=== PATIENT | male | born 1975 | race African-American/Black ===

== ENCOUNTER 2016-07-08 13:35 | Inpatient (IN) | payer BC ==
[~2016-07-08] VITALS: Ht 180.3 cm; Wt 98.9 kg
--- NOTE | ~2016-07-08 | EKG ---
[place] [address] [facility] [place] [address] ELECTROCARDIOGRAM REPORT Name: ANGELICA RAJAN Room #: 203-P ADM IN M.R.#: [id number] Admission: 07/08/16 Attend Phys: Kalen Calloway MD Discharge: Date of : 71 Report #: [id number] THIS REPORT FOR: //name// [facility] ED Test Date: 2016-07-08 Test Time: 13:44:54 Pat Name: ANGELICA RAJAN Department: Room: 203 Gender: M Bundle Person: adi : 1975 Requested By: Suze Mi Order Number: [id number] MD: Matty Pacheco Measurements Intervals [place] Rate: 68 P: 18 W[place]: 166 QRS: -1 QRSD: 103 T: 21 QT: 380 QTc: 405 Interpretive Statements Sinus rhythm RSR' in V1 or V2, probably normal variant ST elev, probable normal early repol pattern No previous ECG available for comparison Electronically Signed On 07-09-2016 12:50:38 CDT by Matty Pacheco [email or web address] <ELECTRONICALLY SIGNED> By: Matty Pacheco MD, [facility] 07/09/16 1250 1344 134 Matty Pacheco MD, [facility] /EPI
--- NOTE | ~2016-07-08 | EKG ---
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 : 1975 Requested By: Suze Mi Order Number: [id number] MD: Matty Pacheco Measurements Intervals [place] Rate: 61 P: 21 [place]: 163 QRS: 1 QRSD: 102 T: 10 QT: 400 QTc: 403 Interpretive Statements Sinus rhythm RSR' in V1 or V2, right VCD ST elevation, consider early repolarization No previous ECG available for comparison Electronically Signed On 07-09-2016 12:51:30 CDT by Matty Pacheco [email or web address] <ELECTRONICALLY SIGNED> By: Matty Pacheco MD, [facility] 07/09/16 1251 1426 1426 Matty Pacheco MD, [facility] /EPI
[~2016-07-08 13:35] MED LIST: ASPIRIN EC325 M1 PO; EFFIENT10 MG PO; FLEXERIL PO; LEVOTHYROXINE0.2 M1 PO; LIPITOR40 MG PO; NORCO 5-325 TA1 EACH PO; TOPROL XL25 MG PO; ZPAK PO
[2016-07-08 13:36] VITALS: BP 121/86
[2016-07-08 13:57] LABS: ABSOLUTE NEUTROPHILS 1.5 thou/uL (1.4-8.2); BASOPHILS 1.4 % (0.0-2.0); EOSINOPHILS 2.4 % (0.0-3.0); HEMATOCRIT 40.5 % (42.0-52.0); HEMOGLOBIN 13.4 gm/dL (14.0-18.0); LYMPHOCYTES 45.7 % (24.0-44.0); MANUAL DIFF NO; MCH 27.7 pg (26.0-34.0); MCHC 33.2 g/dL (28.0-37.0); MCV 83.4 fL (80.0-100.0); MONOCYTES 9.8 % (1.0-8.0); PLATELET COUNT 199 thou/uL (150-400); POLYS 40.7 % (36.0-66.0); RBC 4.86 mil/uL (4.50-6.00); RDW 14.4 % (10.5-14.5); WBC 3.7 thou/uL (4.0-11.0)
[2016-07-08 14:04] LABS: CALCIUM 9.4 mg/dL (8.5-10.1); CREATININE 1.2 mg/dL (0.7-1.3); POTASSIUM 3.9 mmol/L (3.5-5.1)
[2016-07-08 14:14] LABS: TROPONIN-I 0.09 ng/mL (<0.04-0.07)
[2016-07-08] MEDS ORDERED: NORVASC2.5 MG PO (14:35)
[2016-07-08] MEDS ORDERED: LEVOTHYROXIN0.025 MG PO (14:37)
[2016-07-08 15:20] VITALS: BP 124/91
[2016-07-08 15:30] VITALS: BP 109/72
[2016-07-08 19:25] VITALS: BP 136/85
[2016-07-08] MEDS ORDERED: BRIMONIDINE TAR1 BO1 OP (21:36)
[2016-07-08] MEDS ORDERED: XALATAN2.5 ML OPHTHALMIC (21:37)
[2016-07-08] MEDS ORDERED: COSOPT EYE DROPS5 ML OP (21:37)
[2016-07-09 00:06] VITALS: BP 129/88
[2016-07-09 03:27] VITALS: BP 131/85
[2016-07-09 07:00] VITALS: BP 116/80
[2016-07-09 11:10] VITALS: BP 123/78
== END 2016-07-09 14:55 | disposition short-term general hospital (02) | DRG 282 ==
LOC: ER 13:35 → EROBS 14:45 → 2N 14:45
PROVIDERS: Emergency Medicine
DX: I21.3 ST elevation (STEMI) myocardial infarction of unspecified site (principal); I25.110 Atherosclerotic heart disease of native coronary artery with unstable angina pectoris; E03.9 Hypothyroidism, unspecified; Z95.5 Presence of coronary angioplasty implant and graft; Z79.82 Long term (current) use of aspirin; Z79.899 Other long term (current) drug therapy
CPT/HCPCS: 10797

== ENCOUNTER 2017-06-04 08:31 | Emergency (ER) | payer BC ==
[~2017-06-04] VITALS: Ht 180.3 cm; Wt 95.3 kg
[~2017-06-04 08:31] MED LIST changes: +BRIMONIDINE TAR1 BO1 OP; +COSOPT EYE DROPS5 ML OP; +LEVOTHYROXIN0.025 MG PO; +NORVASC2.5 MG PO; +XALATAN2.5 ML OPHTHALMIC
[2017-06-04] MEDS ORDERED: CARVEDILOL6.25 MG (08:50)
== END 2017-06-04 10:23 | disposition home or self-care (01) ==
LOC: ER 08:31
DX: S61.215A Laceration without foreign body of left ring finger without damage to nail, initial encounter (principal); W26.8XXA Contact with other sharp object(s), not elsewhere classified, initial encounter; Y93.89 Activity, other specified; Y92.89 Other specified places as the place of occurrence of the external cause; Y99.8 Other external cause status